=== PATIENT | female | born 2000 | race Caucasian/White ===

== ENCOUNTER 2022-11-05 00:54 | Day surgery (SDC) | payer OTHER ==
[2022-11-05 01:22] VITALS: BMI 33.3
[2022-11-05] MEDS ORDERED: hydrALAZINE 20 MG/ML VIAL SLOW IVP PRN (01:42)
[2022-11-05] MEDS ORDERED: Ondansetron PF 4 MG/2 ML Vial IVP PRN (02:00)
[2022-11-05] MEDS ORDERED: Sodium Chloride 0.9% 1,000 ML IV SCH (02:15)
[2022-11-05 02:34] LABS: SARS-CoV-2 NAA Rapid Test Not Detected (NotDetected)
[2022-11-05 03:15] LABS: Bilirubin Neg (Negative); Blood, Urine Negative (Negative); Clarity Clear (Clear); Glucose, Urine (Dipstick) Normal (Negative); Ketone, Urine Negative (Negative); Leukocyte Negative (Negative); Nitrite Negative (Negative); Protein, Urine (Dipstick) Negative (Neg-Trace); Urobilinogen Normal mg/dL (Less than 2)
[2022-11-05 03:16] LABS: #Basophils 0.1 10x3/uL (0.0-0.2); #Eosinphils 0.1 10x3/uL (0.0-0.5); #Monocytes 1.4 10x3/uL (0.0-1.1); #Neutrophils 11.6 10x3/uL (1.5-8.4); %Basophils 0.6 % (0.0-2.0); %Eosinophils 0.4 % (0.0-6.0); %Lymphocytes 12.5 % (18.0-47.0); %Neutrophils 73.5 % (40.0-75.0); Hemoglobin 10.9 g/dL (12.0-15.5); Mean Corpuscular HGB CONC 34.1 g/dL (32.0-36.0); Mean Corpuscular Hemoglobin 30.4 pg (27.0-33.0); Mean Corpuscular Volume 89.4 fl (81.6-98.3); Mean Platelet Volume 11.6 fl (7.4-10.4); Platelet Count 266 10x3/uL (150-450); RBC Distribution Width 13.7 % (11.5-14.5); Red Blood Cell (RBC) Count 3.58 10x6/uL (3.90-5.03); White Blood Cell (WBC) Count 15.8 10x3/uL (3.5-10.5)
[2022-11-05 03:19] LABS: Bacteria/HPF None Seen HPF (None Seen); CAUTI Indications for Culture Pregnancy; RBC/HPF 0-3 HPF (0-3); Squamous Epithelial 0-3 HPF (0-3); WBC/HPF 0-3 HPF (0-3)
[2022-11-05 03:20] LABS: Urine Culture Reflex Yes Yes
[2022-11-05 03:30] LABS: ALT (SGPT) 13 U/L (8-55); AST (SGOT) 13 U/L (5-34); Albumin 3.6 g/dL (3.5-5.0); Alkaline Phosphatase 40 U/L (40-100); Anion Gap 17 mmol/L (10-20); BUN (Urea Nitrogen) 6 mg/dL (7.0-18.7); Bilirubin, Total 0.1 mg/dL (0.2-1.2); Calc. Creatinine Clearance 215 mL/min (70-130); Calcium 8.8 mg/dL (7.8-10.44); Carbon Dioxide 18 mmol/L (22-29); Chloride 109 mmol/L (98-107); Estimated GFR 133; Globulin 2.8 g/dL (2.4-3.5); Glucose 94 mg/dL (70-105); Protein, Total 6.4 g/dL (6.0-8.3); Sodium 140 mmol/L (136-145)
== END 2022-11-05 05:04 | disposition home or self-care (01) ==
LOC: CSHLD/OP 00:54
PROVIDERS: ATTEND Obstetrics & Gynecology
DX: O21.2 Late vomiting of pregnancy (principal); O99.891 Other specified diseases and conditions complicating pregnancy; R19.7 Diarrhea, unspecified; Z20.822 Contact with and (suspected) exposure to COVID-19; Z3A.26 26 weeks gestation of pregnancy
CPT/HCPCS: 80053; 81001; 85025; 87086; 96360; 96361; 99283

== ENCOUNTER 2022-11-09 11:57 | Day surgery (SDC) | payer OTHER ==
[2022-11-09] MEDS ORDERED: hydrALAZINE 20 MG/ML VIAL SLOW IVP PRN (14:00)
[2022-11-09 14:33] LABS: Bilirubin Neg (Negative); Blood, Urine Negative (Negative); Clarity Clear (Clear); Glucose, Urine (Dipstick) Normal (Negative); Ketone, Urine Negative (Negative); Leukocyte 25 (Negative); Nitrite Negative (Negative); Protein, Urine (Dipstick) Negative (Neg-Trace); Urobilinogen Normal mg/dL (Less than 2); pH, Urine 6.5 (5.0-9.0)
[2022-11-09 14:52] LABS: Bacteria/HPF 2+ HPF (None Seen); CAUTI Indications for Culture Pregnancy; RBC/HPF 0-3 HPF (0-3)
[2022-11-09 14:54] LABS: Mucous/LPF 1+ LPF (<2+)
[2022-11-09 14:55] LABS: Urine Culture Reflex Yes Yes
== END 2022-11-09 15:35 | disposition home health service (06) ==
LOC: CSHLD/OP 11:57
PROVIDERS: ATTEND Obstetrics & Gynecology
DX: O23.42 Unspecified infection of urinary tract in pregnancy, second trimester (principal); N39.0 Urinary tract infection, site not specified; Z3A.27 27 weeks gestation of pregnancy
CPT/HCPCS: 81001; 87086; 99283

== ENCOUNTER 2022-11-29 21:45 | Day surgery (SDC) | payer OTHER ==
[2022-11-29 22:16] VITALS: BMI 35.9
[2022-11-29] MEDS ORDERED: hydrALAZINE 20 MG/ML VIAL SLOW IVP PRN (22:57)
== END 2022-11-29 23:30 | disposition left against medical advice (07) ==
LOC: CSHLD/OP 21:45
PROVIDERS: ATTEND Obstetrics & Gynecology
DX: O99.891 Other specified diseases and conditions complicating pregnancy (principal); R03.0 Elevated blood-pressure reading, without diagnosis of hypertension; Z3A.30 30 weeks gestation of pregnancy
CPT/HCPCS: 99282

== ENCOUNTER 2023-01-18 10:06 | Inpatient (IN) | payer OTHER ==
[2023-01-18] MEDS ORDERED: Diphenoxylate HCl/Atropine Tablet PO PRN ×2 (11:06)
[2023-01-18] MEDS ORDERED: Misoprostol 200 MCG TAB PR PRN ×2 (11:06→17:03)
[2023-01-18] MEDS ORDERED: Bicitra 30 ML UDCUP PO PRN (11:06)
[2023-01-18] MEDS ORDERED: Carboprost 250 MCG/ML AMP IM PRN (11:06)
[2023-01-18] MEDS ORDERED: Ondansetron PF 4 MG/2 ML Vial IVP PRN ×3 (11:06→17:03)
[2023-01-18] MEDS ORDERED: Famotidine/PF 20 mg/2ml Vial SLOW IVP PRN (11:06)
[2023-01-18] MEDS ORDERED: hydrALAZINE 20 MG/ML VIAL SLOW IVP PRN ×2 (11:06→17:03)
[2023-01-18] MEDS ORDERED: Promethazine HCl 25 MG/ML VIAL IM PRN ×2 (11:06→11:08)
[2023-01-18] MEDS ORDERED: Tranexamic Acid 1,000 MG/10 ML VIAL IVP PRN (11:06)
[2023-01-18] MEDS ORDERED: Fentanyl 100 MCG/2 ML VIAL SLOW IVP PRN (11:08)
[2023-01-18] MEDS ORDERED: Meperidine HCl/PF 25 MG/ML VIAL SLOW IVP PRN (11:08)
[2023-01-18] MEDS ORDERED: Ondansetron HCl/PF 4 MG/2 ML Vial IVP PRN (11:08)
[2023-01-18] MEDS ORDERED: Promethazine HCl 25 MG SUPP PR PRN (11:08)
[2023-01-18] MEDS ORDERED: HYDROmorphone 2 MG/ML VIAL SLOW IVP PRN (11:08)
[2023-01-18] MEDS ORDERED: Moisturizing Cream (Eucerin) 113 GM JAR TOP PRN (11:08)
[2023-01-18] MEDS ORDERED: Naloxone HCl 0.4 mg/ml Vial IVP PRN ×2 (11:08)
[2023-01-18] MEDS ORDERED: Naloxone HCl 0.4 mg/ml Vial IV PRN (11:08)
[2023-01-18] MEDS ORDERED: diphenhydrAMINE 50 MG/ML VIAL IVP PRN (11:08)
[2023-01-18] MEDS ORDERED: Ketorolac Tromethamine 30 MG/ML VIAL IVP SCH (11:15)
[2023-01-18] MEDS ORDERED: Communication Order-Pharmacy FS SCH (11:15)
[2023-01-18] MEDS ORDERED: NS w/ Oxytocin 30 units 500 ML IV SCH (11:15)
[2023-01-18] MEDS ORDERED: CEFAZOLIN 2 GM in Sodium Chloride 0.9% 100 ML IVPB SCH (11:15)
[2023-01-18] MEDS ORDERED: Lactated Ringer's 1,000 ML IV SCH (11:15)
[2023-01-18 11:30] LABS: Hemoglobin 9.8 g/dL (12.0-15.5); Mean Corpuscular HGB CONC 31.4 g/dL (32.0-36.0); Mean Corpuscular Hemoglobin 25.5 pg (27.0-33.0); Mean Corpuscular Volume 81.3 fl (81.6-98.3); Mean Platelet Volume 11.9 fl (7.4-10.4); Platelet Count 266 10x3/uL (150-450); RBC Distribution Width 15.8 % (11.5-14.5); Red Blood Cell (RBC) Count 3.84 10x6/uL (3.90-5.03); White Blood Cell (WBC) Count 10.5 10x3/uL (3.5-10.5)
[2023-01-18] MEDS ORDERED: Oxytocin 10 UNITS/ML VIAL ONE ×2 (11:44→13:42)
[2023-01-18] MEDS ORDERED: Dexamethasone 4 mg/ml Vial ONE (11:44)
[2023-01-18] MEDS ORDERED: Fentanyl 100 MCG/2 ML VIAL ONE (11:44)
[2023-01-18] MEDS ORDERED: Ondansetron PF 4 MG/2 ML Vial ONE (11:44)
[2023-01-18] MEDS ORDERED: Morphine PF 10 MG/10 ML VIAL ONE (11:44)
[2023-01-18 11:59] LABS: HBSAg Index 0.18 S/CO (0-0.99); Hep B Surf Ag - L&D Non-Reactive S/CO (NonReactive)
[2023-01-18 12:00] LABS: Syphilis Antibody Nonreactive (Nonreactive); Syphilis Antibody Index 0.03 S/CO (<1.00 Non-Reactive)
[2023-01-18 12:51] VITALS: BMI 37.4
[2023-01-18] MEDS: Ketorolac Tromethamine 30 MG/ML VIAL IVP PRN ×2 (15:20→22:07)
[2023-01-18] MEDS ORDERED: Lanolin Ointment 7 GM TUBE TOP PRN (17:03)
[2023-01-18] MEDS ORDERED: Boostrix 0.5 ML (Tdap) VIAL (>/=7 yrs of age) IM ONE (17:03)
[2023-01-18] MEDS: Docusate 100 MG CAP PO SCH (21:59)
[2023-01-18] MEDS: Ferrous Sulfate 325 MG TAB PO SCH (21:59)
[2023-01-19 04:42] LABS: Hemoglobin 8.4 g/dL (12.0-15.5); Mean Corpuscular HGB CONC 31.6 g/dL (32.0-36.0); Mean Corpuscular Hemoglobin 25.8 pg (27.0-33.0); Mean Corpuscular Volume 81.8 fl (81.6-98.3); Mean Platelet Volume 11.5 fl (7.4-10.4); Platelet Count 240 10x3/uL (150-450); RBC Distribution Width 15.7 % (11.5-14.5); Red Blood Cell (RBC) Count 3.25 10x6/uL (3.90-5.03); White Blood Cell (WBC) Count 15.3 10x3/uL (3.5-10.5)
[2023-01-19] MEDS: HYDROcodone/Acetaminophen 5/325 mg Tablet PO PRN ×2 (05:08→13:51)
[2023-01-19] MEDS: Ketorolac Tromethamine 30 MG/ML VIAL IVP PRN (05:08)
[2023-01-19] MEDS: Ferrous Sulfate 325 MG TAB PO SCH ×2 (08:27→21:23)
[2023-01-19] MEDS: Prenatal Vitamin 1 TAB PO SCH (08:27)
[2023-01-19] MEDS: Docusate 100 MG CAP PO SCH ×2 (08:27→21:23)
[2023-01-19] MEDS: Ibuprofen 800 MG TAB PO SCH ×2 (13:50→21:23)
[2023-01-20] MEDS: HYDROcodone/Acetaminophen 5/325 mg Tablet PO PRN ×3 (00:09→11:25)
[2023-01-20] MEDS: Simethicone Chewable 80 MG TAB PO PRN ×2 (00:09→05:41)
[2023-01-20] MEDS: Ibuprofen 800 MG TAB PO SCH ×2 (05:41→13:25)
[2023-01-20 07:22] VITALS: BP 120/78; TEMP 97.9
[2023-01-20] MEDS: Ferrous Sulfate 325 MG TAB PO SCH (09:56)
[2023-01-20] MEDS: Docusate 100 MG CAP PO SCH (09:56)
[2023-01-20] MEDS: Prenatal Vitamin 1 TAB PO SCH (09:56)
== END 2023-01-20 13:30 | disposition home or self-care (01) | DRG 787 ==
LOC: CSHLD 10:06 → CSHPED 16:26
PROVIDERS: ADMIT Obstetrics & Gynecology; ATTEND Obstetrics & Gynecology
PROC: 10D00Z1 Extraction of Products of Conception, Low, Open Approach (ICD-10-PCS; principal; 2023-01-18)
DX: O14.04 Mild to moderate pre-eclampsia, complicating childbirth (principal); O41.03X0 Oligohydramnios, third trimester, not applicable or unspecified; Z3A.37 37 weeks gestation of pregnancy; Z37.0 Single live birth; O33.9 Maternal care for disproportion, unspecified
CPT/HCPCS: 36415; 51702; 85027; 86780; 86850; 86900; 86901; 87340; J1100; J1885; J2274; J2405; J2590; J3010